=== PATIENT | female | born 1965 ===

== ENCOUNTER 2020-09-19 14:33 | Emergency (ER) | payer OTHER ==
[~2020-09-19] VITALS: Ht 154.9 cm; Wt 59.0 kg
[2020-09-19] MEDS ORDERED: ZOCOR 10 MG (14:43)
[2020-09-19] MEDS ORDERED: CARVEDILOL (14:43)
[2020-09-19] MEDS ORDERED: LANOXIN125 MCG (14:44)
[2020-09-19] MEDS ORDERED: FUROSEMIDE40 MG (14:44)
[2020-09-19] MEDS ORDERED: ALDACTONE25 MG (14:45)
[2020-09-19] MEDS ORDERED: GABAPENTIN 100MG (14:45)
[2020-09-19] MEDS ORDERED: SYNTHROID75 MCG (14:45)
[2020-09-19] MEDS ORDERED: ADULT LOW DOSE81 M1 (14:46)
[2020-09-19] MEDS ORDERED: KETO10TA2 PO (14:50)
[2020-09-19] MEDS ORDERED: FAMCICLOVIR500 MG PO (14:50)
== END 2020-09-19 15:00 | disposition home or self-care (01) ==
LOC: ER 14:33
DX: B02.9 Zoster without complications (principal)